=== PATIENT | male | born 1995 | race Caucasian/White ===

== ENCOUNTER 2019-06-15 09:50 | Emergency (ER) | payer SELFPAY ==
[~2019-06-15] VITALS: Ht 170.2 cm; Wt 54.4 kg
[2019-06-15] MEDS ORDERED: SODIUM CHLORIDE 0.9% 1,000 ML IV ONE ×3 (09:55→10:30)
[2019-06-15] MEDS ORDERED: HYDROmorphone HCL 2 MG/ML VL IV ONE (10:00)
[2019-06-15] MEDS ORDERED: ONDANSETRON HCL 4 MG/2 ML VIAL IV ONE ×2 (10:00)
[2019-06-15] MEDS: SODIUM CHLORIDE 0.9% 1,000 ML IV ONE (10:30)
[2019-06-15 10:47] LABS: Basophils # (auto) 0 uL; Basophils % (auto) 0.2 % (0.0-2.0); Eosinophils # (auto) 0 uL; Eosinophils % (auto) 0.4 % (0.0-7.0); Hematocrit 41.6 % (41.0-53.0); Hemoglobin 14.2 g/dL (13.5-17.5); Lymphocytes % (auto) 11.2 % (10.0-50.0); Mean Corpuscular Hemoglobin 30.2 pg (28.0-32.0); Mean Corpuscular Hgb Conc. 34.1 g/dL (32.0-36.0); Mean Corpuscular Volume 88.4 fL (80.0-100.0); Monocytes # (auto) 0.5 uL; Monocytes % (auto) 5.4 % (0.0-12.0); Neutrophils # (auto) 7.5 uL; Neutrophils % (auto) 82.8 % (37.0-80.0); Nucleated Red Blood Cells % 0.1 %; Platelet Count (auto) 200 10^3/uL (140-450); Red Cell Distribution Width 13.7 % (11.8-14.3); White Blood Cell 9.1 10^3/uL (4.4-10.8)
[2019-06-15 11:17] LABS: Albumin 3.8 g/dL (3.4-5.0); Calcium 8.9 mg/dL (8.5-10.1); Potassium 4.3 mmol/L (3.5-5.1)
[2019-06-15 11:21] LABS: BUN/Creatinine Ratio 15.7; Bilirubin, Total 0.4 mg/dL (0.2-1.0); Total Protein 7.2 g/dL (6.4-8.2)
[2019-06-15 12:55] VITALS: BP 117/76
== END 2019-06-15 13:02 | disposition home or self-care (01) ==
LOC: EDBD 09:50 → ER 09:50
DX: E86.0 Dehydration (principal); I10 Essential (primary) hypertension; Z90.49 Acquired absence of other specified parts of digestive tract
CPT/HCPCS: 36415; 70450; 71045; 80053; 85025; 96361; 96374; 96375; 99285; J1170; J2405

== ENCOUNTER 2019-06-16 12:11 | Emergency (ER) | payer SELFPAY ==
[~2019-06-16] VITALS: Ht 180.3 cm; Wt 54.4 kg
[2019-06-16 15:41] VITALS: BP 128/87
== END 2019-06-16 17:01 | disposition home or self-care (01) ==
LOC: ER 12:11 → EDBD 12:11 → ER 17:01
DX: M62.838 Other muscle spasm (principal); I10 Essential (primary) hypertension; Z90.49 Acquired absence of other specified parts of digestive tract